=== PATIENT | female | born 1985 ===

== ENCOUNTER 2017-02-07 09:17 | Emergency (ER) | payer OTHER ==
[2017-02-07 09:18] VITALS: BMI 45.7
[2017-02-07 09:40] VITALS: RESP 18; TEMP 98.4
--- NOTE | 2017-02-07 10:05 | ED PDOC ---
Arrival/HPI - General Historian: Patient - History of Present Illness Time/Duration: Other (2 weeks) Symptom Course: Worsening Quality: Unable to Describe Severity Level: 7 <Davey Garcia - Last Filed: 02/07/17 15:17> <Channing Ross Rayo - Last Filed: 02/07/17 18:16> - General Chief Complaint: Upper Extremity Problem/Injury Time Seen by Provider: 02/07/17 09:19 - History of Present Illness Narrative History of Present Illness (Text): 02/07/17 10:02 This is a 31 year old female with no significant PMHx who presents complaining of right axillary abscess. Patient unable to describe quality of pain but states it is 7/10 non-radiating. Patient states that this began about 2 weeks ago and saw Dr. Christensen for it. Patient stated that she was given antibiotics which have not helped. Her pharmacy was called and it was verified that she was dispensed Augmentin 500mg BID on 01/29/17 for 5 days. Patient states that she feels that the mass has actually grown since it started. Patient denies fever, chills, chest pain, dyspnea, abdominal pain, n/v/c/d, dysuria. Patient did state that she once had an abscess on her left axillary region before. PMD: Dr. Christensen (Davey Garcia) Past Medical History - Provider Review Nursing Documentation Reviewed: Yes - Travel History If Yes, travel location?: [email or web address] - Infectious Disease Hx of Infectious Diseases: None - Cardiac Hx Cardiac Disorders: No - Pulmonary Hx Asthma: Yes - Neurological Hx Neurological Disorder: No - HEENT Hx HEENT Disorder: No - Renal Hx Renal Disorder: No - Endocrine/Metabolic Hx Endocrine Disorders: No - Hematological/Oncological Hx Blood Disorders: No - Integumentary Hx Dermatological Disorder: No - Musculoskeletal/Rheumatological Hx Musculoskeletal Disorders: No - Gastrointestinal Hx Gastrointestinal Disorders: Yes Hx Gastroesophageal Reflux: Yes - Genitourinary/Gynecological Hx Genitourinary Disorders: No - Psychiatric Hx Depression: No Hx Emotional Abuse: No Hx Physical Abuse: No Hx Substance Use: No - Surgical History Hx Cholecystectomy: Yes Hx Tubal Ligation: Yes - Anesthesia Hx Anesthesia: Yes Hx Anesthesia Reactions: No Hx Malignant Hyperthermia: No - Suicidal Assessment Feels Threatened In Home Enviroment: No <Davey Garcia - Last Filed: 02/07/17 15:17> Family/Social History - Physician Review Nursing Documentation Reviewed: Yes Family/Social History: Diabetes Smoking Status: Never Smoked Hx Alcohol Use: Yes Hx Substance Use: No <Davey Garcia - Last Filed: 02/07/17 15:17> Allergies/Home Meds <Davey Garcia - Last Filed: 02/07/17 15:17> <Channing Ross - Last Filed: 02/07/17 18:16> Allergies/Adverse Reactions: Allergies No Known Allergies Allergy (Verified 01/31/13 20:28) Home Medications: Home Meds Medication Instructions Recorded Confirmed Ranitidine HCl [Zantac 75] 75 mg PO DAILY 02/07/17 02/07/17 Review of Systems - Review of Systems Constitutional: Normal. absent: Fevers Eyes: Normal ENT: Normal Respiratory: Normal. absent: SOB Cardiovascular: Normal. absent: Chest Pain Gastrointestinal: Normal. absent: Abdominal Pain, Constipation, Diarrhea, Nausea, Vomiting Genitourinary Female: Normal. absent: Dysuria Musculoskeletal: Normal Skin: Abscess (right axillary) Neurological: Normal Endocrine: Normal Hemo/Lymphatic: Normal Psychiatric: Normal <Davey Garcia - Last Filed: 02/07/17 15:17> Physical Exam Vital Signs Reviewed: Yes Temperature: Afebrile Blood Pressure: Normal Pulse: Regular Respiratory Rate: Normal Appearance: Positive for: Well-Appearing Pain Distress: Moderate Mental Status: Positive for: Alert and Oriented X 3 - Systems Exam Head: Present: Atraumatic, Normocephalic Pupils: Present: PERRL Extroacular Muscles: Present: EOMI Conjunctiva: Present: Normal Mouth: Present: Moist Mucous Membranes Neck: Present: Normal Range of Motion Respiratory/Chest: Present: Clear to Auscultation, Good Air Exchange. No: Accessory Muscle Use Cardiovascular: Present: Regular Rate and Rhythm, Normal S1, S2 Abdomen: Present: Normal Bowel Sounds. No: Tenderness, Distention Upper Extremity: Present: Normal Inspection, NORMAL PULSES. No: Edema Lower Extremity: Present: Normal Inspection, NORMAL PULSES. No: Edema, CALF TENDERNESS Neurological: Present: GCS=15, CN II-XII Intact Skin: Present: Warm, Dry, Abscess (right axillary fluctuant abscess with erythema overlying it. No surrounding erythema.) Psychiatric: Present: Alert, Oriented x 3 <Davey Garcia - Last Filed: 02/07/17 15:17> Vital Signs Temp Pulse Resp BP Pulse Ox 02/07/17 11:24 64 18 125/80 98 02/07/17 11:09 69 18 121/75 99 02/07/17 09:27 98.4 F 74 18 123/82 97 Medical Decision Making <Davey Garcia - Last Filed: 02/07/17 15:17> <Channing Ross - Last Filed: 02/07/17 18:16> ED Course and Treatment: 02/07/17 11:33 Right axillary abscess was incised and drained of purulent fluid. Further details in the procedure section. Patient was instructed to return after 2 days for wound check. Patient discharged on 5 day course of Augmentin 500/125mg Q12H and prn Motrin. ( Davey Garcia) A 31 year old female with a right axillary abscess. In agreement with resident note, which includes further HPI details. Patient was seen and evaluated with resident, came up with plan and treatment together. I&D was performed by Resident with my supervision. See resident note. Patient tolerating procedure well. She was instructed on following up with the ED in 2 days for wound check. (Channing Ross) - Medication Orders Current Medication Orders: Discontinued Medications Ketorolac Tromethamine (Toradol) 60 mg IM STAT STA Stop: 02/07/17 10:54 Last Admin: 02/07/17 10:55 Dose: 60 mg MAR Pain Assessment Document 02/07/17 10:55 SF (Rec: 02/07/17 11:24 SF [id number]) Pain Reassessment Is this a pain reassessment? Yes Sleep Is patient sleeping during reassessment? No Presence of Pain Presence of Pain Yes IM Administration Charges Document 02/07/17 10:55 SF (Rec: 02/07/17 11:24 SF [id number]) Injection Site MAR Injection Site Left Deltoid Charges for Administration # of IM Administrations 1 Procedures - Incision and Drainage Site: Right axillary region Blade Size: 11 <Davey Garcia - Last Filed: 02/07/17 15:17> <Channing Ross - Last Filed: 02/07/17 18:16> - Incision and Drainage Progress: Lidocaine 1% mixed with saline was given at site of abscess. Patient was in significant pain in the middle of procedure. Toradol 60 mg IM given. Patient was able to tolerate procedure afterwards. Wound was then packed with iodoform and then covered with Telfa and gauze. (Davey Garcia) Contrary to resident note, lidocaine was not mixed with lidocaine. To the site we only injected lidocaine. During the I&D patient felt moderate pain so we treated with Toradol IM. Patient improved. We continued the I&D. (Channing Ross) <Davey Garcia - Last Filed: 02/07/17 15:17> - PA / CALL OR CONTACT CENTRE COACH / Resident Statement / has reviewed & agrees with the documentation as recorded. MD/ has examined the patient and agrees with the treatment plan. - Scribe Statement The provider has reviewed the documentation as recorded by the Scribe <Channing Ross - Last Filed: 02/07/17 18:16> - Scribe Statement Estee Garza Provider Scribe Attestation: All medical record entries made by the Scribe were at my direction and personally dictated by me. I have reviewed the chart and agree that the record accurately reflects my personal performance of the history, physical exam, medical decision making, and the department course for this patient. I have also personally directed, reviewed, and agree with the discharge instructions and disposition. (Channing Ross) Disposition/Present on Arrival - Present on Arrival Any Indicators Present on Arrival: No History of DVT/PE: No History of Uncontrolled Diabetes: No Urinary Catheter: No History of Decub. Ulcer: No History Surgical Site Infection Following: None - Disposition Have Diagnosis and Disposition been Completed?: Yes Disposition Time: 11:10 <Davey Garcia - Last Filed: 02/07/17 15:17> <Channing Ross - Last Filed: 02/07/17 18:16> - Disposition Diagnosis: Axillary abscess Disposition: HOME/ ROUTINE Condition: GOOD Discharge Instructions (ExitCare): Abscess (ED), Abscess Follow-up (ED) Print Language: KHMER Additional Instructions: Please return in 2 days for management of your wound. You may shower but please make sure not to get the area wet. Please take the antibiotic Augmentin two times a day for 5 days. Take it every 12 hours. Please take Motrin with food ONLY IF needed for pain. If there are any new or worsening symptoms such as fever, chills, chest pain, or trouble breathing, please return to the emergency room. Vuelva por favor en 2 billings para la gerencia de lombardo herida. Usted puede ducharse, milton por favor asegrese de no obtener la macy hmeda. Por favor tome el antibitico Augmentin dos veces al da stalin 5 billings. Tmelo cada 12 horas. Por favor, tome Motrin con comida SOLAMENTE si es necesario para el dolor. Si hay sntomas nuevos o que empeoran, kendrick fiebre, escalofros, dolor en el pecho o dificultad para respirar, por favor regrese a la anson de emergencias. Prescriptions: Amoxicillin/Clavulanate [Augmentin 500 MG-125 MG] 1 tab PO Q12H 5 Days #10 tab Ibuprofen [Motrin] 600 mg PO Q6H PRN #20 tab PRN Reason: Pain, Mild (1-3) Referrals: Katty Christensen MD [Staff Provider] - Follow up with primary PCP,NO [Primary Care Provider] - Follow up with primary Forms: [employer] (Czech)
[2017-02-07 11:25] VITALS: BP 125/80; PULSE 64; O2SAT 98
== END 2017-02-07 11:26 | disposition home or self-care (01) ==
LOC: ED 09:17
DX: L02.411 Cutaneous abscess of right axilla (principal)
CPT/HCPCS: 10060; 96372; 99284; J1885

== ENCOUNTER 2017-02-09 09:04 | Emergency (ER) | payer OTHER ==
[2017-02-09 09:08] VITALS: BMI 45.4
[2017-02-09 09:12] VITALS: BP 126/82; PULSE 71; RESP 18; TEMP 98.6; O2SAT 99
--- NOTE | 2017-02-09 09:37 | ED PDOC ---
Arrival/HPI - General Historian: Patient - History of Present Illness Time/Duration: Other (2 days) Context: Home - General Chief Complaint: Wound Check Time Seen by Provider: 02/09/17 09:13 - History of Present Illness Narrative History of Present Illness (Text): 02/09/17 09:33 This 31 yo female presents to this ED for right axilla wound check x 2 day. Patient stated she had a I&D x 2 days ago, and packing was placed. Patient stated pain has been improving. Denies new complains. (Annel Howard) Past Medical History - Provider Review Nursing Documentation Reviewed: Yes - Infectious Disease Hx of Infectious Diseases: None - Cardiac Hx Cardiac Disorders: No - Pulmonary Hx Asthma: Yes - Neurological Hx Neurological Disorder: No - HEENT Hx HEENT Disorder: No - Renal Hx Renal Disorder: No - Endocrine/Metabolic Hx Endocrine Disorders: No - Hematological/Oncological Hx Blood Disorders: No - Integumentary Hx Dermatological Disorder: No - Musculoskeletal/Rheumatological Hx Musculoskeletal Disorders: No - Gastrointestinal Hx Gastrointestinal Disorders: Yes Hx Gastroesophageal Reflux: Yes - Genitourinary/Gynecological Hx Genitourinary Disorders: No - Psychiatric Hx Depression: No Hx Emotional Abuse: No Hx Physical Abuse: No Hx Substance Use: No - Surgical History Hx Cholecystectomy: Yes Hx Tubal Ligation: Yes - Anesthesia Hx Anesthesia: Yes Hx Anesthesia Reactions: No Hx Malignant Hyperthermia: No - Suicidal Assessment Feels Threatened In Home Enviroment: No Family/Social History - Physician Review Nursing Documentation Reviewed: Yes Family/Social History: Other (non-contributory) Smoking Status: Never Smoked Hx Alcohol Use: Yes Hx Substance Use: No Allergies/Home Meds Allergies/Adverse Reactions: Allergies No Known Allergies Allergy (Verified 02/09/17 09:08) Home Medications: Home Meds Medication Instructions Recorded Confirmed Alprazolam [Xanax] 0 mg PO DAILY 02/09/17 02/09/17 Review of Systems - Review of Systems Constitutional: Normal. absent: Fatigue, Weight Change, Fevers Eyes: Normal ENT: Normal Respiratory: Normal Cardiovascular: Normal Gastrointestinal: Normal Genitourinary Female: Normal Musculoskeletal: Normal Skin: Other (wound check and packing removal) Neurological: Normal Endocrine: Normal Hemo/Lymphatic: Normal Psychiatric: Normal Physical Exam Temperature: Afebrile Blood Pressure: Normal Pulse: Regular Respiratory Rate: Normal Appearance: Positive for: Well-Appearing, Non-Toxic, Comfortable Pain Distress: None Mental Status: Positive for: Alert and Oriented X 3 - Systems Exam Head: Present: Atraumatic, Normocephalic Pupils: Present: PERRL Extroacular Muscles: Present: EOMI Conjunctiva: Present: Normal Mouth: Present: Moist Mucous Membranes Upper Extremity: Present: Normal ROM, NORMAL PULSES, Neurovascularly Intact, Capillary Refill < 2s, Other ((+) right axilla wound is healing well with packing in place. No tenderness). No: Tenderness, Swelling, Erythema Lower Extremity: Present: Normal Inspection, NORMAL PULSES, Normal ROM, Neurovascularly Intact, Capillary Refill < 2 s. No: Edema, CALF TENDERNESS Neurological: Present: GCS=15, CN II-XII Intact, Speech Normal, Motor Func Grossly Intact, Normal Sensory Function, Normal Cerebellar Funct, Gait Normal Skin: Present: Warm, Dry, Normal Color. No: Rashes Psychiatric: Present: Alert, Oriented x 3, Normal Insight, Normal Concentration Vital Signs Temp Pulse Resp BP Pulse Ox 02/09/17 09:12 98.6 F 71 18 126/82 99 Medical Decision Making Re-evaluation Time: 09:37 Reassessment Condition: Re-examined, Improved ED Course and Treatment: 02/09/17 09:37 Re-evaluation. Patient feels better. Discussed results and plan with patient who expresses understanding. All questions answered and there is agreement with the plan to discharge home with instructions. Patient stable for discharge. Return if symptoms persist or worsen. 02/09/17 09:37 Packing was removed without complication. No discharge. Patient tolerated procedure well. Wound is non tender. (Annel Howard) I was available for consultation during PA evaluation. The chart was reviewed by me, and I agree with disposition. The documented history was done by the physician associate manager affiliate marketing. The documented physical exam was done by the physician associate manager affiliate marketing. The documented procedures were done by the physician associate manager affiliate marketing. (Ian Coppola) Disposition/Present on Arrival - Present on Arrival Any Indicators Present on Arrival: No History of DVT/PE: No History of Uncontrolled Diabetes: No Urinary Catheter: No History of Decub. Ulcer: No History Surgical Site Infection Following: None - Disposition Have Diagnosis and Disposition been Completed?: Yes Disposition Time: 09:38 Patient Plan: Discharge - Disposition Diagnosis: Encounter for wound re-check, Encounter for removal of abscess packing Disposition: HOME/ ROUTINE Condition: IMPROVED Discharge Instructions (ExitCare): Abscess Incision and Drainage (ED) Additional Instructions: Call private doctor for follow up visit in 1-2 days. Clean wound daily with soap and water. Continue with antibiotic till finish. Return to emergency if wound becomes painful or worsening of infection Referrals: Katty Christensen MD [Primary Care Provider] - Follow up with primary Forms: [employer] (Czech)
== END 2017-02-09 09:46 | disposition home or self-care (01) ==
LOC: ED 09:04
DX: Z48.01 Encounter for change or removal of surgical wound dressing (principal)